=== PATIENT | male | born 1950 | race Caucasian/White ===

== ENCOUNTER 2017-11-08 06:36 | Emergency (ER) | payer MEDICARE ==
--- NOTE | 2017-11-08 07:01 | EDM.PDOC ---
ED HPI GENERAL MEDICAL PROBLEM - General Chief Complaint: Back Pain or Injury Stated Complaint: BACKPAIN Time Seen by Provider: 11/08/17 07:11 Source of Information: Reports: Patient History Limitations: Reports: No Limitations - History of Present Illness INITIAL COMMENTS - FREE TEXT/NARRATIVE: This is a 66-year-old gentleman coming in today with complains of low back pain would began yesterday evening while at rest. Pain is constant #10 non radiating located in the mid low backed. Pain is worsened when he tries to lay down. No extremity weaknes no sphinteric concerns no fever no new other evidence of red flag signs. Patient has had recent ankle surgery and has tried ankle surgery pain meds and they are not helping the symptoms. No skin rashes no fever. Quality: Reports: Dull Severity: Severe Improves with: Reports: None lower back Pain Score (Numeric/FACES): 9 - Related Data Allergies Allergy/AdvReac Type Severity Reaction Status Date / Time No Known Allergies Allergy Verified 11/08/17 06:46 Home Meds: Home Meds Aspirin [Ecotrin] 325 mg PO DAILY 11/08/17 [History] Ketorolac [Toradol] 10 mg PO Q6H PRN 7 Days #20 tab 11/08/17 [Rx] Latanoprost/Pf [Latanoprost 0.005% Eye Drop] 1 drop EYEBOTH DAILY 11/08/17 [ History] Losartan [Cozaar] 25 mg PO DAILY 11/08/17 [History] Social & Family History - Tobacco Use Smoking Status *Q: Never Smoker - Caffeine Use Caffeine Use: Reports: Coffee - Alcohol Use Days Per Week of Alcohol Use: 2 Number of Drinks Per Day: 3 Total Drinks Per Week: 6 - Recreational Drug Use Recreational Drug Use: No ED ROS GENERAL - Review of Systems Review Of Systems: See Below Constitutional: Reports: No Symptoms Cardiovascular: Reports: No Symptoms GI/Abdominal: Reports: No Symptoms : Reports: No Symptoms Musculoskeletal: Reports: Back Pain Neurological: Reports: No Symptoms ED EXAM, GENERAL - Physical Exam Exam: See Below Exam Limited By: No Limitations General Appearance: Alert, Mild Distress Respiratory/Chest: No Respiratory Distress, Lungs Clear, Normal Breath Sounds, No Accessory Muscle Use Cardiovascular: Normal Peripheral Pulses, Regular Rate, Rhythm, No Edema Peripheral Pulses: 2+: Radial (L), Radial (R), Dorsalis Pedis (L), Dorsalis Pedis (R) GI/Abdominal: Soft, Non-Tender. No: Guarding, Rigid Back Exam: Vertebral Tenderness, Other (There is point tenderness over the fourth and fifth vertebra bones in the midline). No: CVA Tenderness (R), CVA Tenderness (L), Paraspinal Tenderness Neurological: Other (SLR test is negative bilaterally). No: Inattentive, Confused, Unresponsive Psychiatric: Normal Affect Front/Back Body Diagram: 1 - point tenderness Course - Vital Signs Text/Narrative:: Le male patient coming in new onset back pain and only took one dose of aspirin yesterday. The pain is reproducible with palpation in the lower mid back as elucidated in the drawn diagram. He has no red flag signs. Abdominal ultrasound of the aorta shows no aortic aneurysm or any evidence of an aortic bleed. Patient is not hypotensive initial tachycardia likely secondary to pain seeing he describing his pain as 9/10. He will be discharged on Toradol tablets to be taken with meals. He is to hold off aspirin while taking the Toradol. He may combine acetaminophen 1 g every 6 hours for pain. Discharge and return instructions given Last Recorded V/S: Last Vital Signs Temp 36.9 C 11/08/17 06:40 Pulse 107 H 11/08/17 07:55 Resp 18 11/08/17 07:55 BP 155/87 H 11/08/17 07:55 Pulse Ox 98 11/08/17 07:55 - Orders/Labs/Meds Orders: Active Orders 24 hr Category Date Time Status Aorta Comp Duplex [US] Stat Exams 11/08/17 07:32 Taken Meds: Medications Discontinued Medications Generic Name Dose Route Start Last Admin Trade Name Evelia PRN Reason Stop Dose Admin Hydrocodone Bitart/Acetaminophen 1 tab 11/08/17 07:28 11/08/17 07:40 [place] 325-5 Mg PO 11/08/17 07:29 1 tab ONETIME ONE Administration Departure - Departure Time of Disposition: 07:47 Disposition: Home, Self-Care 01 Clinical Impression: Back pain at L4-L5 level - Discharge Information *PRESCRIPTION DRUG MONITORING PROGRAM REVIEWED*: No *COPY OF PRESCRIPTION DRUG MONITORING REPORT IN PATIENT BA: No Prescriptions: Ketorolac [Toradol] 10 mg PO Q6H PRN 7 Days #20 tab PRN Reason: Pain (Severe 7-10) Instructions: Acetaminophen; Hydrocodone tablets or capsules, Back Exercises, [id number], Musculoskeletal Pain Referrals: PCP,Not In Area [Primary Care Provider] - Forms: ED Department Discharge Additional Instructions: Do not take aspirin on the days you are taking Toradol for pain. Please take Toradol with meals and not on an empty stomach. You may combine acetaminophen 1000mg every 6 hours for pain with Toradol therapy. If you developed fever, lower extremity weakness, sphincteric problems that is urine or stool incontinence return to the emergency room. Please go see your primary care physician if symptoms are persisting or worsening. - My Orders Last 24 Hours: My Active Orders 11/08/17 07:32 Aorta Comp Duplex [US] Stat - Assessment/Plan Last 24 Hours: My Active Orders 11/08/17 07:32 Aorta Comp Duplex [US] Stat
[2017-11-08] MEDS ORDERED: Acetaminophen/HYDROcodone 325-5 MG Tab PO ONE (07:28)
--- NOTE | 2017-11-09 08:22 | US ---
INDICATION: Pain in low back. DUPLEX ULTRASOUND AORTA: Multiple ultrasonic images revealed the abdominal aorta to measure 2.2, 1.7, and 1.5 cm in the proximal, mid, and distal aorta respectively. Relatively minimal atherosclerotic changes are noted. No obstruction of flow was seen. IMPRESSION: No evidence of AAA. MTDD
== END 2017-11-08 08:00 | disposition home or self-care (01) ==
LOC: FB.ED 06:36
DX: M54.5 Low back pain (principal)
CPT/HCPCS: 76770; 99284; A9270-GY

== ENCOUNTER 2019-07-11 12:30 | Emergency (ER) | payer MEDICARE ==
--- NOTE | 2019-07-11 12:50 | EDM.PDOC ---
ED HPI GENERAL MEDICAL PROBLEM - General Chief Complaint: Lower Extremity Injury/Pain Stated Complaint: POSSIBLE BROKEN ANKLE Time Seen by Provider: 07/11/19 12:43 Source of Information: Reports: Patient History Limitations: Reports: No Limitations - History of Present Illness INITIAL COMMENTS - FREE TEXT/NARRATIVE: 68-year-old male who reports was on a ladder about 4 feet up and was taking old sliding off of a garage and was reaching over and the ladder that he was on tipped and he fell landing directly on both feet but felt that he landed unevenly on his left foot and felt a twisting and his ankle with pain in the left ankle. He also hit the ladder he thinks with the lateral, proximal left lower leg on the way down and has some pain in that area as well. He rates the pain as about a 4/10 at present. It is an aching pain with some sharp spikes that is worse with movement and with palpation. There are no open wounds. This occurred approximately noon today. He did not hit his head. In fact, he did not fall onto the ground but stay on both feet. He has no neck or back pain. Just prior to my coming into the room apparently he begin to feel nauseated and woozy and was diaphoretic when I was initially evaluating him but this improved once he got onto the stretcher. No chest pain. No shortness of breath. He felt completely well prior to this occurring. There are no other associated signs or symptoms. There are no other modifying factors. Onset: Today (Noon) Duration: Constant Location: Reports: Lower Extremity, Left Quality: Reports: Ache, Sharp Severity: Moderate Improves with: Reports: Immobilization, Rest Worsens with: Reports: Other (Palpation), Movement Context: Reports: Trauma Associated Symptoms: Reports: Diaphoresis, Nausea/Vomiting Treatments GLASSWARE SELECTOR: Reports: Other (see below) (Nothing) Left ankle Pain Score (Numeric/FACES): 3 - Related Data Allergies Allergy/AdvReac Type Severity Reaction Status Date / Time No Known Allergies Allergy Verified 07/11/19 12:37 Home Meds: Home Meds . [Unable to Verify Home Med List] 07/11/19 [History] Past Medical History HEENT History: Reports: Glaucoma Cardiovascular History: Reports: Hypertension - Past Surgical History HEENT Surgical History: Reports: Tonsillectomy GI Surgical History: Reports: Hernia, Inguinal (Left) Musculoskeletal Surgical History: Reports: Knee Replacement (Left total knee replacement), Shoulder Surgery, Other (See Below) Other Musculoskeletal Surgeries/Procedures:: recent left knee surgery x3, also has had bunion surgery and bilateral shoulder rotator cuffs. 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 Denies: Vomiting Genitourinary: Reports: No Symptoms Musculoskeletal: Reports: Leg Pain (Left lower leg and ankle pain), Joint Pain Skin: Reports: Bruising (On proximal left lower leg) Neurological: Reports: No Symptoms Psychiatric: Reports: No Symptoms ED EXAM, GENERAL - Physical Exam Exam: See Below Exam Limited By: No Limitations General Appearance: Alert, WD/WN, Moderate Distress Eye Exam: Bilateral Eye: EOMI, Normal Inspection, PERRL Ears: Normal External Exam, Hearing Grossly Normal Ear Exam: Bilateral Ear: Auricle Normal Nose: Normal Inspection, Normal Mucosa, No Blood Throat/Mouth: Normal Inspection, Normal Oropharynx, Normal Voice, No Airway Compromise Head: Atraumatic, Normocephalic Neck: Normal Inspection, Supple, Non-Tender, Full Range of Motion Respiratory/Chest: No Respiratory Distress, Lungs Clear, Normal Breath Sounds, No Accessory Muscle Use, Chest Non-Tender Cardiovascular: Normal Peripheral Pulses, Regular Rate, Rhythm, No Murmur Peripheral Pulses: 2+: Radial (L), Radial (R), Dorsalis Pedis (L), Dorsalis Pedis (R) GI/Abdominal: Normal Bowel Sounds, Soft, Non-Tender, No Mass, Pelvis Stable Back Exam: Normal Inspection, Full Range of Motion Extremities: Normal Capillary Refill, Joint Swelling, Leg Pain (Swelling and ecchymosis in the proximal and lateral left lower leg.), Other (Swelling and pain in the left ankle.) Neurological: Alert, Oriented, CN II-XII Intact, Normal Cognition, No Motor/ Sensory Deficits Skin Exam: Intact, Normal Color, No Rash, Diaphoretic ED TRAUMA EXTREMITY PROCEDURES - Splinting Left Lower Extremity Splint Site: Left lower leg, ankle and foot Pre-Procedure NV Status: Normal Post-Procedure NV Status: Normal Splint Material: Fiberglass Splint Design: Stirrup, Posterior Applied & Form Fitted By: Provider Provider Post-Splint Application NV Check: NV Status Normal Complications: No Progress/Comments: Short leg Ortho-Glass posterior splint with a stirrup applied to the left lower leg, ankle and foot. Web roll was used to pad the ankle very well. I did have to reduce a dislocation of the ankle that occurred secondary to muscle spasm. The patient tolerated this well. He had been premedicated with morphine and Dilaudid. The patient tolerated all of this well without any apparent complications. Reduction x-ray is pending. EKG INTERPRETATION EKG Date: 07/11/19 Time: 14:36 Rhythm: NSR Rate (Beats/Min): 94 [place]: Normal P-Wave: Present (Possible ectopic atrial rhythm) QRS: Normal ST-T: Normal QT: Prolonged (Slightly prolonged QTc.) Comparison: NA - No Prior EKG Course - Vital Signs Last Recorded V/S: Last Vital Signs Temp 37.0 C 07/11/19 15:25 Pulse 95 07/11/19 15:25 Resp 18 07/11/19 15:25 BP 148/82 H 07/11/19 15:25 Pulse Ox 97 07/11/19 15:25 - Orders/Labs/Meds Orders: Active Orders 24 hr Category Date Time Status Ankle Min 3V Lt [CR] Stat Exams 07/11/19 12:58 Taken Peripheral IV Insertion Adult [OM.PC] Routine Oth 07/11/19 13:36 Ordered EKG 12 Lead [EK] Routine Ther 07/11/19 13:36 Ordered Labs: Laboratory Tests 07/11/19 07/11/19 07/11/19 Range/Units 13:47 13:47 15:28 WBC 12.1 H (4.5-12.0) X10-3/uL RBC 4.51 (4.30-5.75) x10(6)uL Hgb 13.7 (13.5-17.8) g/dL Hct 42.2 (30.0-51.3) % MCV 93.6 (80-96) fL MCH 30.3 (27.7-33.6) pg MCHC 32.4 (32.2-35.4) g/dL RDW 13.2 (11.5-15.5) % Plt Count 285 (125-369) X10(3)uL MPV 6.5 L (7.4-10.4) fL Neut % (Auto) 83.6 H (46-82) % Lymph % (Auto) 11.1 L (13-37) % [place] % (Auto) 4.1 (4-12) % Eos % (Auto) 1 (1.0-5.0) % Baso % (Auto) 0 (0-2) % Neut # (Auto) 10.2 H (1.6-8.3) # Lymph # (Auto) 1.3 (0.6-5.0) # [place] # (Auto) 0.5 (0.0-1.3) # Eos # (Auto) 0.1 (0.0-0.8) # Baso # (Auto) 0.0 (0.0-0.2) # Sodium 142 (135-145) mmol/L Potassium 3.4 L (3.5-5.3) mmol/L Chloride 106 (100-110) mmol/L Carbon Dioxide 28 (21-32) mmol/L BUN 13 (7-18) mg/dL Creatinine 1.1 (0.70-1.30) mg/dL Est Cr Clr Drug Dosing 59.26 mL/min Estimated GFR (MDRD) > 60 (>60) BUN/Creatinine Ratio 11.8 (9-20) Glucose 134 H (80-116) mg/dL Calcium 9.5 (8.6-10.2) mg/dL Total Bilirubin 1.8 H (0.1-1.3) mg/dL AST 61 H (5-25) IU/L ALT 27 (12-36) U/L Alkaline Phosphatase 83 (56-112) IU/L Total Protein 7.4 (6.0-8.0) g/dL Albumin 4.0 (3.2-4.6) g/dL Globulin 3.4 g/dL Albumin/Globulin Ratio 1.2 Urine Color Yellow (YELLOW) Urine Appearance Clear (CLEAR) Urine pH 6.0 (5.0-6.5) Ur Specific [place] 1.010 (1.010-1.025) Urine Protein Negative (NEGATIVE) mg/dL Urine Glucose (UA) Normal (NORMAL) mg/dL Urine Ketones 15 H (NEGATIVE) mg/dL Urine Occult Blood Negative (NEGATIVE) Urine Nitrite Negative (NEGATIVE) Urine Bilirubin Negative (NEGATIVE) Urine Urobilinogen Normal (NEGATIVE) mg/dL Ur Leukocyte Esterase Negative (NEGATIVE) Urine RBC Not seen (0-5) Urine WBC 0-5 (0-5) Ur Squamous Epith Cells Few H (NS,R,O) Urine Bacteria Few H (NS) Meds: Medications Discontinued Medications Generic Name Dose Route Start Last Admin Trade Name Freq PRN Reason Stop Dose Admin Hydromorphone HCl 1 mg 07/11/19 14:10 07/11/19 14:14 Dilaudid IVPUSH 07/11/19 14:11 1 mg ONETIME ONE Administration Sodium Chloride 1,000 mls @ 125 mls/hr 07/11/19 13:45 07/11/19 14:30 Normal Saline IV 125 mls/hr ASDIRECTED LIZETTE Administration Sodium Chloride 500 mls @ 999 mls/hr 07/11/19 13:36 07/11/19 13:52 Normal Saline IV 07/11/19 14:06 999 mls/hr .BOLUS ONE Administration Morphine Sulfate 4 mg 07/11/19 13:36 07/11/19 13:52 Morphine IVPUSH 07/11/19 13:37 4 mg ONETIME ONE Administration Ondansetron HCl 4 mg 07/11/19 13:36 07/11/19 13:57 Zofran IVPUSH 07/11/19 13:37 4 mg ONETIME ONE Administration Sodium Chloride 10 ml 07/11/19 13:36 07/11/19 13:50 Saline Flush FLUSH 10 ml ASDIRECTED PRN Administration Keep Vein Open - Radiology Interpretation Free Text/Narrative:: Left tib-fib x-ray shows possible proximal lateral tibial plateau fracture along the prosthesis, nondisplaced area Left ankle x-ray shows nondisplaced bimalleolar fracture. Left ankle x-ray, postreduction showed good alignment. - Re-Assessments/Exams Free Text/Narrative Re-Assessment/Exam: 07/11/19 14:45: The patient was placed in a short leg posterior fiberglass splint with a stirrup. I had previously discussed the patient the need for intervention for this ankle fracture. The patient will need orthopedic specially services which are not available at [facility] at this time. He has asked that I discuss his case with the doctors at [facility]. I called and discussed the patient's case with Dr. Sun, intake physician at [facility], and I also discussed the case with Rossana, orthopedic PA, and they will accept the patient in transfer. The patient will be transferred via ambulance to [facility] for direct admission. He has remained vitally stable and appears quite comfortable now. Screening labs were for the most part normal except she did have a slightly elevated bilirubin at 1.8 and an AST of 61. His EKG was reassuring. Departure - Departure Time of Disposition: 15:46 Disposition: DC/Tfer to Acute Hospital 02 Condition: Good Clinical Impression: Contusion of left lower leg, initial encounter Closed bimalleolar fracture of left ankle Qualifiers: Encounter type: initial encounter Qualified Code(s): S82.842A - Displaced bimalleolar fracture of left lower leg, initial encounter for closed fracture Fall from ladder Qualifiers: Encounter type: initial encounter Qualified Code(s): W11.XXXA - Fall on and from ladder, initial encounter - Discharge Information Referrals: PCP,None [Ordering Only Provider] - Forms: ED Department Discharge Sepsis Event Note - Evaluation Sepsis Screening Result: No Definite Risk - Focused Exam Vital Signs: Vital Signs Temp Pulse Resp BP Pulse Ox 07/11/19 15:25 37.0 C 95 18 148/82 H 97 07/11/19 12:53 75 18 122/84 98 07/11/19 12:30 36.3 C 72 16 117/74 97 Date Exam was Performed: 07/11/19 Time Exam was Performed: 21:07 - My Orders Last 24 Hours: My Active Orders 07/11/19 12:58 Ankle Min 3V Lt [CR] Stat 07/11/19 13:36 Peripheral IV Insertion Adult [OM.PC] Routine EKG 12 Lead [EK] Routine - Assessment/Plan Last 24 Hours: My Active Orders 07/11/19 12:58 Ankle Min 3V Lt [CR] Stat 07/11/19 13:36 Peripheral IV Insertion Adult [OM.PC] Routine EKG 12 Lead [EK] Routine
[2019-07-11] MEDS ORDERED: Ondansetron 4 MG/2 ML SDV IVPUSH ONE (13:36)
[2019-07-11] MEDS ORDERED: Morphine 2 MG/ML Syringe IVPUSH ONE (13:36)
[2019-07-11] MEDS ORDERED: Sodium Chloride 0.9% 500 ML IV ONE (13:36)
[2019-07-11] MEDS ORDERED: Sodium Chloride 0.9% 10 ML Syringe FLUSH PRN (13:36)
[2019-07-11] MEDS ORDERED: Sodium Chloride 0.9% 1,000 ML IV SCH (13:45)
--- NOTE | 2019-07-11 13:52 | CR ---
INDICATION: Fall with injury, lower leg pain and ankle pain. Pain mostly in the left ankle, fell 3-4 feet from a ladder, landing flat foot on rocks. LEFT TIB/FIB: Frontal and lateral views of the left tibia and fibula revealed evidence of a total knee arthroplasty, which appears to be intact without a definite acute fracture or dislocation, in the area of the tibia. At the medial aspect of the femur, there appears to be loosening of the femoral component in that there is a cystic change adjacent to the medial aspect of the femoral component of the left knee arthroplasty. This should be correlated clinically. No comparison study was available at this time. Fractures of the medial and lateral malleoli are noted with lateral offset of the talus with respect to the tibia and narrowing of the lateral tibiotalar joint space relatively. There is medial angulation at the fibular fracture site. IMPRESSION: 1. At least bimalleolar fracture site with moderate deformity. 2. Possible loosening femoral component of left knee arthroplasty at medial aspect - correlate clinically with comparison to old studies as available. NOELD
[2019-07-11] MEDS ORDERED: HYDROmorphone 2 MG/ML SDV IVPUSH ONE (14:10)
--- NOTE | 2019-07-11 17:08 | CR ---
INDICATION: Post-reduction left ankle fracture - post-casting. LEFT ANKLE: Frontal and lateral views of the left ankle were obtained 07/11/19 at 1437 hours and compared with the recent study of 1252 hours now revealing post-reduction changes with cast placed over the fracture site. There may remain slight widening of the medial ankle mortise - a minimal residual of subluxation may be present of the talus laterally - correlate clinically. Offset at the medial malleolar fracture site is decreased compared with the previous exam. No definite complicating process was identified. MTDD
--- NOTE | 2019-07-12 07:43 | CR ---
INDICATION: Fall with injury. Lower leg pain and ankle pain. Pain mostly in the left ankle, fell 3-4 feet from a ladder landing flat foot on rocks. LEFT ANKLE: Three views of the left ankle were obtained and revealed a comminuted oblique fracture through the distal shaft and metaphysis of the fibula with slight medial angulation at the fracture site but no significant distraction of fracture fragments. There is an oblique fracture through the medial malleolus additionally with lateral offset of approximately 3-4 mm of the distal medial malleolar fracture fragment. There also appears to be widening of the lateral aspect of the ankle mortise compatible with a mild degree of subluxation laterally of the talus with respect to the tibia. Soft tissue swelling is noted - bimalleolar. No evidence of a posterior tibial fracture site was noted - posterior malleolar fracture site. IMPRESSION: Bimalleolar fracture with mild subluxation and [id number] deformity. MTDD
== END 2019-07-11 15:46 ==
LOC: FB.ED 12:30
DX: S82.842A Displaced bimalleolar fracture of left lower leg, initial encounter for closed fracture (principal); S80.12XA Contusion of left lower leg, initial encounter; I10 Essential (primary) hypertension; W11.XXXA Fall on and from ladder, initial encounter
CPT/HCPCS: 29515; 36415; 73590-LT; 73600-LT; 73610-LT; 80053; 81001; 85025; 93005; 96374; 96375; 99285-25; J1170; J2270; J2405; J7030; J7040

== ENCOUNTER 2020-05-24 23:11 | Emergency (ER) | payer MEDICARE ==
--- NOTE | 2020-05-24 23:21 | EDM.PDOC ---
ED HPI GENERAL MEDICAL PROBLEM - General Stated Complaint: CHEST PAIN Time Seen by Provider: 05/24/20 23:20 Source of Information: Reports: Patient History Limitations: Reports: No Limitations - History of Present Illness INITIAL COMMENTS - FREE TEXT/NARRATIVE: 69-year-old male who reports that at approximately 2 to 3 AM on 05/22/2020 he get up to go to the bathroom and noticed that his left leg felt funny and felt very heavy and he was having a hard time lifting his left leg and felt discoordinated. He was able to walk back to bed and went back to sleep and later on that morning he awoke and was still feeling weak on his left leg but also noticed that his left arm was weak and he felt that his kettle cleaner is not as good as the right arm. He reports that he begin to have significant difficulties getting around and had to start using his walker again and even with that he felt that he was continually falling to his left and was very weak on his left leg and it seemed to want to "give out on him" all the time and he required a good bit of assistance from his family members. Tuesday night, he decided to go to [facility] ED in [place] and was seen and felt to have left leg weakness (I did get a copy of the patient's record from that visit and reviewed it) but no testing was performed at that time and it was felt by the provider that saw him that this was most likely related to his previous knee surgery. There is no mention of left arm weakness but the patient tells me that his left arm was weak at that time. He denies any headache nor has he had any headache during all of this. He does feel that the weakness has been since a.m. and it may have been getting worse since Tuesday. Tonight approximately one hour prior to coming in did feel some light left-sided chest pain that he rated as a 1/10 and that has since completely gone. He has had no nausea or vomiting. He has had no trouble swallowing. There has been no trouble speaking. He denies any vision problems. There is been no dizziness but he does feel weak on the left side and it makes him unsteady and in fact he did fall yesterday prior to going into [facility]. He reports that he has been eating and drinking normally and has had no trouble swallowing. He has had no hematuria or dysuria. There are no other associated signs or symptoms. There are no other modifying factors. 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.) left chest Pain Score (Numeric/FACES): 1 - Related Data Allergies Allergy/AdvReac Type Severity Reaction Status Date / Time hyaluronate sodium, Allergy Other Verified 05/25/20 00:49 stabilized hydrochlorothiazide Allergy Other Verified 05/25/20 00:49 Home Meds: Home Meds Latanoprost/Pf [Latanoprost 0.005% Eye Drop] 1 drop EYEBOTH DAILY 05/25/20 [History] Losartan [Cozaar] 50 mg PO DAILY 05/25/20 [History] Past Medical History HEENT History: Reports: Glaucoma Cardiovascular History: Reports: Hypertension - Past Surgical History HEENT Surgical History: Reports: Tonsillectomy GI Surgical History: Reports: Hernia, Inguinal Musculoskeletal Surgical History: Reports: Knee Replacement, ORIF (Of left ankle), Shoulder Surgery, Other (See Below) Other Musculoskeletal Surgeries/Procedures:: left knee surgery x3, also has had bunion surgery and bilateral shoulder rotator cuffs. 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 Now resolved.) Endocrine: Reports: No Symptoms GI/Abdominal: Reports: No Symptoms : Reports: No Symptoms Musculoskeletal: Reports: No Symptoms Skin: Reports: No Symptoms Neurological: Reports: Weakness (Left upper and lower extremity weakness and discoordination.) Psychiatric: Reports: No Symptoms Hematologic/Lymphatic: Reports: No Symptoms Immunologic: Reports: No Symptoms ED EXAM, GENERAL - Physical Exam Exam: See Below Exam Limited By: No Limitations General Appearance: Alert, No Apparent Distress, Obese Eye Exam: Bilateral Eye: EOMI, Normal Inspection, PERRL Ears: Normal External Exam, Hearing Grossly Normal Ear Exam: Bilateral Ear: Auricle Normal Nose: Normal Inspection, Normal Mucosa, No Blood Throat/Mouth: Normal Inspection, Normal Oropharynx, Normal Voice, No Airway Compromise Head: Atraumatic, Normocephalic Neck: Normal Inspection, Supple, Non-Tender, Full Range of Motion Respiratory/Chest: No Respiratory Distress, Lungs Clear, Normal Breath Sounds, No Accessory Muscle Use, Chest Non-Tender Cardiovascular: Normal Peripheral Pulses, Regular Rate, Rhythm, No Murmur Peripheral Pulses: 2+: Radial (L), Radial (R), Dorsalis Pedis (L), Dorsalis Pedis (R) GI/Abdominal: Normal Bowel Sounds, Soft, Non-Tender, No Mass Back Exam: Normal Inspection, Full Range of Motion Extremities: Normal Inspection, Normal Range of Motion, Non-Tender, No Pedal Edema, Normal Capillary Refill Neurological: Alert, Oriented, CN II-XII Intact, Normal Cognition, Sensory/Motor Deficit (Left upper and lower extremity weakness. It appears to be at a 4/5 level. There is decreased kettle cleaner in the left hand compared to the right and there is left-sided pronator drift.) Psychiatric: Normal Affect Skin Exam: Warm, Dry, Intact, Normal Color, No Rash #1 Interpretation EKG Date: 05/24/20 Time: 23:21 Rhythm: NSR Rate (Beats/Min): 89 [place]: Normal P-Wave: Present QRS: Normal ST-T: Normal QT: Normal Comparison: No Change (No change from EKG performed on 07/11/2019.) Course - Vital Signs Last Recorded V/S: Last Vital Signs Temp 36.7 C 05/25/20 00:00 Pulse 86 05/25/20 00:00 Resp 19 05/25/20 00:00 BP 137/81 05/25/20 00:00 Pulse Ox 100 05/25/20 00:00 - Orders/Labs/Meds Orders: Active Orders 24 hr Category Date Time Status EKG Documentation Completion [RC] ASDIRECTED Care 05/24/20 23:31 Active Chest 1V Frontal [CR] Stat Exams 05/24/20 23:53 Taken Head wo Cont [CT] Stat Exams 05/24/20 23:53 Taken Sodium Chloride 0.9% [Normal Saline] 1,000 ml Med 05/25/20 01:00 Active IV ASDIRECTED Sodium Chloride 0.9% [Saline Flush] Med 05/24/20 23:53 Active 10 ml FLUSH ASDIRECTED PRN Peripheral IV Insertion Adult [OM.PC] Routine Oth 05/24/20 23:53 Ordered EKG 12 Lead [EK] Routine Ther 05/24/20 23:31 Ordered Medication Orders Sodium Chloride (Normal Saline) 1,000 mls @ 125 mls/hr IV ASDIRECTED LIZETTE Last Admin: 05/25/20 00:58 Dose: 125 mls/hr Documented by: DRAPJUL Sodium Chloride (Sodium Chloride 0.9% 10 Ml Syringe) 10 ml FLUSH ASDIRECTED PRN PRN Reason: Keep Vein Open Labs: Laboratory Tests 05/24/20 05/24/20 05/24/20 Range/Units 23:25 23:25 23:25 WBC 7.7 (3.2-10.1) x10-3/uL RBC 4.38 (3.90-5.90) x10(6)uL Hgb 14.3 (12.9-17.7) g/dL Hct 43.0 (38.3-50.1) % MCV 98.3 (80.8-98.7) fL MCH 32.7 (27.0-33.3) pg MCHC 33.3 (28.7-35.3) g/dL RDW 13.1 (12.4-15.0) % Plt Count 240 (117-477) x10(3)uL MPV 7.8 (6.7-11.0) fL Neut % (Auto) 66.0 (40.3-71.8) % Lymph % (Auto) 23.5 (15.8-45.3) % Placer % (Auto) 6.8 (5.5-15.2) % Eos % (Auto) 3.2 (0.1-6.8) % Baso % (Auto) 0.5 (0.3-3.8) % Neut # (Auto) 5.1 (1.7-6.9) x10-3/uL Lymph # (Auto) 1.8 (0.5-4.5) x10-3/uL Placer # (Auto) 0.5 (0.0-1.2) x10-3/uL Eos # (Auto) 0.2 (0.0-0.6) x10-3/uL Baso # (Auto) 0.0 (0.0-0.3) x10-3/uL Sodium 142 (135-145) mmol/L Potassium 3.3 L (3.5-5.3) mmol/L Chloride 102 (100-110) mmol/L Carbon Dioxide 26 (21-32) mmol/L BUN 18 (7-18) mg/dL Creatinine 1.1 (0.70-1.30) mg/dL Est Cr Clr Drug Dosing 58.42 mL/min Estimated GFR (MDRD) > 60 (>60) BUN/Creatinine Ratio 16.4 (9-20) Glucose 211 H (80-116) mg/dL Calcium 8.8 (8.6-10.2) mg/dL Magnesium 1.8 (1.8-2.5) mg/dL Total Bilirubin 2.0 H (0.1-1.3) mg/dL AST 47 H D (5-25) IU/L ALT 29 (12-36) U/L Alkaline Phosphatase 78 (56-112) IU/L Troponin I 5.5 (4.0-60.3) pg/mL Total Protein 7.0 (6.0-8.0) g/dL Albumin 3.6 (3.2-4.6) g/dL Globulin 3.4 g/dL Albumin/Globulin Ratio 1.1 Meds: Medications Generic Name Dose Route Start Last Admin Trade Name Freq PRN Reason Stop Dose Admin Sodium Chloride 1,000 mls @ 125 mls/hr 05/25/20 01:00 05/25/20 00:58 Normal Saline IV 125 mls/hr ASDIRECTED LIZETTE Administration Sodium Chloride 10 ml 05/24/20 23:53 Sodium Chloride 0.9% 10 Ml Syringe FLUSH ASDIRECTED PRN Keep Vein Open - Radiology Interpretation Free Text/Narrative:: Portable chest x-ray showed no acute disease. CT scan of the head showed no acute findings per the [facility] radiologist. - Re-Assessments/Exams Free Text/Narrative Re-Assessment/Exam: 05/25/20 12:45: The patient's labs were reassuring except for a blood glucose of 211. His EKG was normal. An initial troponin was normal. A portable chest x-ray showed no acute disease. The CT scan of his head showed no acute disease. The patient has remained neurologically and hemodynamically stable. He does, however, appear to have had a CVA. He will need neurology specially services which are not available at [facility]. I discussed all of this with the patient and his and they would want me to discuss his case with the doctors at [facility] in [place]. 05/25/20 12:57: I discussed the patient's case with Dr. Alves, stroke neurologist at [facility], and he has agreed to accept the patient in transfer. The patient will be transferred via ALS ambulance to [facility] for direct admission. The patient and his are in agreement with this plan. Departure - Departure Time of Disposition: 01:59 Disposition: DC/Tfer to Acute Hospital 02 Condition: Fair (Stable.) Clinical Impression: Hyperglycemia, Left-sided weakness CVA (cerebral vascular accident) Qualifiers: CVA mechanism: unspecified Qualified Code(s): I63.9 - Cerebral infarction, unspecified - Discharge Information Referrals: PCP,None [Primary Care Provider] - Sepsis Event Note (ED) - Focused Exam Vital Signs: Vital Signs Temp Pulse Resp BP Pulse Ox 05/25/20 00:00 36.7 C 86 19 137/81 100 05/24/20 23:15 36.7 C 84 19 137/83 99 - My Orders Last 24 Hours: My Active Orders 05/24/20 23:31 EKG Documentation Completion [RC] ASDIRECTED EKG 12 Lead [EK] Routine 05/24/20 23:53 Chest 1V Frontal [CR] Stat Head wo Cont [CT] Stat Sodium Chloride 0.9% [Saline Flush] 10 ml FLUSH ASDIRECTED PRN Peripheral IV Insertion Adult [OM.PC] Routine 05/25/20 01:00 Sodium Chloride 0.9% [Normal Saline] 1,000 ml IV ASDIRECTED - Assessment/Plan Last 24 Hours: My Active Orders 05/24/20 23:31 EKG Documentation Completion [RC] ASDIRECTED EKG 12 Lead [EK] Routine 05/24/20 23:53 Chest 1V Frontal [CR] Stat Head wo Cont [CT] Stat Sodium Chloride 0.9% [Saline Flush] 10 ml FLUSH ASDIRECTED PRN Peripheral IV Insertion Adult [OM.PC] Routine 05/25/20 01:00 Sodium Chloride 0.9% [Normal Saline] 1,000 ml IV ASDIRECTED
[2020-05-24] MEDS ORDERED: Sodium Chloride 0.9% 10 ML Syringe FLUSH PRN (23:53)
[2020-05-25] MEDS ORDERED: Sodium Chloride 0.9% 1,000 ML IV SCH (01:00)
--- NOTE | 2020-05-26 11:46 | CR ---
INDICATION: Chest pain. CHEST, ONE VIEW: AP portable upright view of the chest was obtained 05/24/20 - no comparison. The heart did not appear enlarged. The aorta is tortuous. Lungs appear to be somewhat hyperaerated with interdigitation of the right hemidiaphragm leaf suggesting COPD. A definite active infiltrate or effusion was not identified. IMPRESSION: 1. No acute process. 2. ASD aorta - mild. 3. Possible COPD - correlate clinically. MTDD
== END 2020-05-25 02:00 ==
LOC: FB.ED 23:11
DX: I63.9 Cerebral infarction, unspecified (principal); R53.1 Weakness; I10 Essential (primary) hypertension; R73.9 Hyperglycemia, unspecified; Z88.8 Allergy status to other drugs, medicaments and biological substances; Z79.899 Other long term (current) drug therapy
CPT/HCPCS: 36415; 70450; 71045; 80053; 83735; 84484; 85025; 93005; 99285; J7030

== ENCOUNTER 2023-11-29 20:51 | Emergency (ER) | payer MEDICARE ==
[2023-11-29] MEDS ORDERED: Lidocaine 2% 20 ML MDV INFILT ONE (20:52)
== END 2023-11-29 21:29 | disposition home or self-care (01) ==
LOC: FB.ED 20:51
DX: S61.412A Laceration without foreign body of left hand, initial encounter (principal); I10 Essential (primary) hypertension; Z88.8 Allergy status to other drugs, medicaments and biological substances; Z79.899 Other long term (current) drug therapy; W26.8XXA Contact with other sharp object(s), not elsewhere classified, initial encounter
CPT/HCPCS: 12001; 99282; 99283

== ENCOUNTER 2024-06-27 20:29 | Emergency (ER) | payer MEDICARE ==
[2024-06-27] MEDS ORDERED: Sodium Chloride 0.9% 10 ML Syringe FLUSH PRN (20:39)
[2024-06-27 20:49] LABS: BASOPHILS ABSOLUTE AUTO 0.1 x10-3/uL (0.0-0.3); BASOPHILS PERCENT AUTO 0.8 % (0.3-3.8); EOSINOPHILS ABSOLUTE AUTO 0.2 x10-3/uL (0.0-0.6); EOSINOPHILS PERCENT AUTO 2.4 % (0.1-6.8); HEMATOCRIT 33.4 % (38.3-50.1); LYMPHOCYTES ABSOLUTE AUTO 1.7 x10-3/uL (0.5-4.5); LYMPHOCYTES PERCENT AUTO 21.1 % (15.8-45.3); MEAN CORPUSCULAR HGB CONC 35.9 g/dL (28.7-35.3); MEAN CORPUSCULAR VOLUME 91.9 fL (80.8-98.7); MEAN PLATELET VOLUME 7.8 fL (6.7-11.0); MONOCYTES ABSOLUTE AUTO 0.8 x10-3/uL (0.0-1.2); MONOCYTES PERCENT AUTO 9.3 % (5.5-15.2); NEUTROPHILS ABSOLUTE AUTO 5.5 x10-3/uL (1.7-6.9); NEUTROPHILS PERCENT AUTO 66.4 % (40.3-71.8); PLATELET COUNT,PLT 240 x10(3)uL (117-477); RED BLOOD CELL COUNT 3.64 x10(6)uL (3.90-5.90); RED CELL DISTRIBUTION WIDTH 12.9 % (12.4-15.0); WHITE BLOOD CELL COUNT,WBC 8.2 x10-3/uL (3.2-10.1)
[2024-06-27 20:56] LABS: BLOOD UREA NITROGEN,BUN 17 mg/dL (7-18); BUN/CREATININE RATIO 15.5 (9-20); CALCIUM 8.8 mg/dL (8.6-10.2); CARBON DIOXIDE,CO2 27 mmol/L (21-32); CHLORIDE,CL 104 mmol/L (100-110); CREATININE 1.1 mg/dL (0.70-1.30); ESTIMATED GFR 70 mL/min (>60); GLUCOSE RANDOM 212 mg/dL (80-116); POTASSIUM,K 3.5 mmol/L (3.5-5.3); SODIUM,NA 139 mmol/L (135-145)
[2024-06-27 21:10] LABS: TROPONIN I 5.1 pg/mL (4.0-60.3)
[2024-06-27] MEDS: Iopamidol 755 Mg/ML 100 ML Bottle IV ONE (21:31)
== END 2024-06-27 22:18 | disposition home or self-care (01) ==
LOC: FB.ED 20:29
DX: R07.2 Precordial pain (principal); I10 Essential (primary) hypertension; Z88.8 Allergy status to other drugs, medicaments and biological substances; Z79.899 Other long term (current) drug therapy
CPT/HCPCS: 71260; 80048; 83880; 84484; 85025; 99285; Q9967

== ENCOUNTER 2024-06-28 22:59 | Emergency (ER) | payer MEDICARE ==
[2024-06-29] MEDS: Ketorolac 30 MG/ML SDV IM ONE (00:04)
== END 2024-06-29 00:44 | disposition home or self-care (01) ==
LOC: FB.ED 22:59
DX: M25.532 Pain in left wrist (principal); R60.0 Localized edema; I10 Essential (primary) hypertension; Z88.8 Allergy status to other drugs, medicaments and biological substances; Z79.899 Other long term (current) drug therapy; X58.XXXA Exposure to other specified factors, initial encounter
CPT/HCPCS: 96372; 99283; J1885

== ENCOUNTER 2024-07-06 15:47 | Emergency (ER) | payer MEDICARE ==
[2024-07-06 16:32] LABS: BASOPHILS ABSOLUTE AUTO 0.1 x10-3/uL (0.0-0.3); BASOPHILS PERCENT AUTO 1.1 % (0.3-3.8); EOSINOPHILS ABSOLUTE AUTO 0.2 x10-3/uL (0.0-0.6); EOSINOPHILS PERCENT AUTO 2.7 % (0.1-6.8); HEMATOCRIT 33.2 % (38.3-50.1); HEMOGLOBIN 11.7 g/dL (12.9-17.7); LYMPHOCYTES ABSOLUTE AUTO 1.2 x10-3/uL (0.5-4.5); LYMPHOCYTES PERCENT AUTO 16.5 % (15.8-45.3); MEAN CORPUSCULAR HGB CONC 35.3 g/dL (28.7-35.3); MEAN CORPUSCULAR VOLUME 90.7 fL (80.8-98.7); MEAN PLATELET VOLUME 7.7 fL (6.7-11.0); MONOCYTES ABSOLUTE AUTO 0.6 x10-3/uL (0.0-1.2); MONOCYTES PERCENT AUTO 8.2 % (5.5-15.2); NEUTROPHILS ABSOLUTE AUTO 5.1 x10-3/uL (1.7-6.9); NEUTROPHILS PERCENT AUTO 71.5 % (40.3-71.8); PLATELET COUNT,PLT 313 x10(3)uL (117-477); RED BLOOD CELL COUNT 3.67 x10(6)uL (3.90-5.90); RED CELL DISTRIBUTION WIDTH 12.4 % (12.4-15.0); WHITE BLOOD CELL COUNT,WBC 7.2 x10-3/uL (3.2-10.1)
[2024-07-06 16:37] LABS: BLOOD UREA NITROGEN,BUN 17 mg/dL (7-18); BUN/CREATININE RATIO 15.5 (9-20); CALCIUM 8.6 mg/dL (8.6-10.2); CARBON DIOXIDE,CO2 22 mmol/L (21-32); CHLORIDE,CL 100 mmol/L (100-110); CREATININE 1.1 mg/dL (0.70-1.30); EST CRCL DRUG DOSING (CG) 55.08 mL/min; ESTIMATED GFR 70 mL/min (>60); GLUCOSE RANDOM 364 mg/dL (80-116); POTASSIUM,K 3.3 mmol/L (3.5-5.3); SODIUM,NA 134 mmol/L (135-145)
[2024-07-06 16:43] LABS: A/G RATIO 0.8; ALANINE AMINOTRANSFERASE,ALT 23 U/L (12-36); ALBUMIN 2.9 g/dL (3.2-4.6); ALKALINE PHOSPHATASE 133 IU/L (56-112); ASPARTATE AMNIOTRANSFERASE,AST 37 IU/L (5-25); BILIRUBIN TOTAL 1.1 mg/dL (0.1-1.3); PROTEIN TOTAL,TP 6.7 g/dL (6.0-8.0)
== END 2024-07-06 17:10 | disposition home or self-care (01) ==
LOC: FB.ED 15:47
DX: S60.212A Contusion of left wrist, initial encounter (principal); S01.112A Laceration without foreign body of left eyelid and periocular area, initial encounter; I10 Essential (primary) hypertension; Z88.8 Allergy status to other drugs, medicaments and biological substances; Z79.899 Other long term (current) drug therapy; W19.XXXA Unspecified fall, initial encounter; W22.8XXA Striking against or struck by other objects, initial encounter; Y92.009 Unspecified place in unspecified non-institutional (private) residence as the place of occurrence of the external cause
CPT/HCPCS: 12011; 36415; 70450; 73100-LT; 80053; 84484; 85025; 99284

== ENCOUNTER 2024-07-27 05:02 | Emergency (ER) | payer MEDICARE ==
[2024-07-27] MEDS: Simethicone 80 MG Tab.Chew PO ONE (06:03)
[2024-07-27] MEDS: Famotidine 20 MG Tab PO ONE (06:03)
== END 2024-07-27 06:35 | disposition home or self-care (01) ==
LOC: FB.ED 05:02
DX: R14.2 Eructation (principal); M25.532 Pain in left wrist; M79.89 Other specified soft tissue disorders; I10 Essential (primary) hypertension; Z79.899 Other long term (current) drug therapy; Z88.8 Allergy status to other drugs, medicaments and biological substances; Z88.5 Allergy status to narcotic agent
CPT/HCPCS: 99283; A9270-GY